=== PATIENT | female | born 1955 | race Caucasian/White ===

== ENCOUNTER → 2016-10-06 | Outpatient (CLI) | payer OTHER ==
[~2016-10-06] MED LIST: ACID REDUCER150 MG PO; ALBUTEROL17 GM INH; ALBUTEROL2.5 MG/3 M NEB; ALENDRONATE SOD70 M1 PO; ALPRAZOLAM PO; ASPIRIN81 M1 PO; ASPIRINEC PO; ATENOLOL PO; BACTRIM DS TABL1 TA1 PO; BACTRIM DS TABL1 TAB PO; BIAXIN PO; FAMOTIDINE PO; HCTZ PO; HYDROCHLOROTHIA25 MG PO; IBUPROFEN PO; KEFLEX PO; MYLANTA PO; NEXIUM PO; PATIENT'S PHARMACY; PRILOSEC PO; PYRIDIUM PO; TENORMIN50 MG PO; TYLENOL #3 PO; ULTRAM PO; VICODIN PO; VOLTAREN100 GM TOP; ZITHROMAX
--- NOTE | ~2016-10-06 | CR169 ---
[facility] A Service of [facility] RADIOLOGY TEXT RESULTS PATIENT: ISABEL JUAREZ LOCATION: [facility] : 57 UNIT #: [id number] AGE: [address]: Gina Nam MD SEX: F ORDER DR: [id number] [facility] [address] [place], [place] [address] [id number] O MR#: [id number] Acc #: [id number] NAME: ISABEL JUAREZ : 1955 SEX: F STUDY DATE/TIME: 10/06/2016 15:51 UNIT: [facility] ROOM: STUDY DESCRIPTION: CR Knee 2 Views Lt Attending Physician: Gina Nam M.D. Referring Physician: Gina Nam M.D. Ordering Physician: Gina Nam M.D. Primary Care Physician: Gina Nam M.D. MEDICAL IMAGING REPORT This report is preliminary unless electronic signature is present EXAM Left knee. HISTORY Bilateral knee pain with intermittent buckling for four months. FINDINGS Two views of the left knee are obtained. Bony elements are intact. Joint spaces and articular surfaces are preserved. No fractures are seen. There is no joint effusion. There is some ossification at the quadriceps insertion. CONCLUSION Negative. Dictated by... Ozzy Thorne M.D. THIS IS AN ELECTRONICALLY VERIFIED REPORT Ozzy Thorne M.D. at 10/10/2016 5:09 PM Liang TD: 10/07/2016 06:44 JOB #: [id number] MEDICAL IMAGING REPORT Page 1 of 1 COPY
--- NOTE | ~2016-10-06 | CR170 ---
[facility] A Service of [facility] RADIOLOGY TEXT RESULTS PATIENT: ISABEL JUAREZ LOCATION: [facility] : 57 UNIT #: [id number] AGE: [address]: Gina Nam MD SEX: F ORDER DR: [id number] [facility] [address] [place], [place] [address] [id number] O MR#: [id number] Acc #: [id number] NAME: ISABEL JUAREZ : 1955 SEX: F STUDY DATE/TIME: 10/06/2016 15:51 UNIT: [facility] ROOM: STUDY DESCRIPTION: CR Knee 2 Views Rt Attending Physician: Gina Nam M.D. Referring Physician: Gina Nam M.D. Ordering Physician: Gina Nam M.D. Primary Care Physician: Gina Nam M.D. MEDICAL IMAGING REPORT This report is preliminary unless electronic signature is present EXAM Right knee two views. HISTORY Knee pain for four months. Two views are submitted. FINDINGS There is mild marginal spur formation along the intercondylar notch. There is ossification of the quadriceps tendon insertion. No fractures are identified. IMPRESSION Mild marginal spur formation, otherwise negative. Dictated by... Ozzy Thorne M.D. THIS IS AN ELECTRONICALLY VERIFIED REPORT Ozzy Thorne M.D. at 10/10/2016 5:09 PM Liang TD: 10/07/2016 06:45 JOB #: [id number] MEDICAL IMAGING REPORT COPY
--- NOTE | ~2016-10-06 | CR184 ---
[facility] A Service of [facility] RADIOLOGY TEXT RESULTS PATIENT: ISABEL JUAREZ LOCATION: [facility] : 57 UNIT #: [id number] AGE: [address]: Gina Nam MD SEX: F ORDER DR: [id number] [facility] [address] [place], [place] [address] [id number] O MR#: [id number] Acc #: [id number] NAME: ISABEL JUAREZ : 1955 SEX: F STUDY DATE/TIME: 10/06/2016 15:53 UNIT: [facility] ROOM: STUDY DESCRIPTION: CR Lumbar Spine Min 4 Views Attending Physician: Gina Nam M.D. Referring Physician: Gina Nam M.D. Ordering Physician: Gina Nam M.D. Primary Care Physician: Gina Nam M.D. MEDICAL IMAGING REPORT This report is preliminary unless electronic signature is present EXAM Lumbosacral spine with obliques HISTORY Chronic neck and low back pain. FINDINGS AP, lateral, spot and oblique views were obtained. There is generalized osteopenia. Disc space and vertebral body height is maintained. Alignment is normal. There are atherosclerotic calcifications in the aorta. There is evidence of facet disease at L5-S1. CONCLUSION Osteopenia. Facet disease L5-S1. No acute findings. Dictated by... Ozzy Thorne M.D. THIS IS AN ELECTRONICALLY VERIFIED REPORT Ozzy Thorne M.D. at 10/10/2016 5:10 PM KINGSTON/nikki TD: 10/07/2016 06:50 JOB #: [id number] MEDICAL IMAGING REPORT Page 1 of 1 COPY
--- NOTE | ~2016-10-06 | CR61 ---
[facility] A Service [facility] RADIOLOGY TEXT RESULTS PATIENT: ISABEL JUAREZ LOCATION: [facility] : 57 UNIT #: [id number] AGE: [address]: Gina Nam MD SEX: F ORDER DR: [id number] [facility] [address] [place], [place] [address] [id number] O MR#: [id number] Acc #: [id number] NAME: ISABEL JUAREZ : 1955 SEX: F STUDY DATE/TIME: 10/06/2016 15:52 UNIT: [facility] ROOM: STUDY DESCRIPTION: CR Cervical Spine Min 5 Views Attending Physician: Gina Nam M.D. Referring Physician: Gina Nam M.D. Ordering Physician: Gina Nam M.D. Primary Care Physician: Gina Nam M.D. MEDICAL IMAGING REPORT This report is preliminary unless electronic signature is present EXAM Cervical spine total of 5 views HISTORY Bilateral knee pain with intermittent buckling for 4 months. Chronic neck and low back pain. FINDINGS AP, lateral, open-mouth and oblique views are submitted for a total of 6 views. There are no previous studies for comparison. Two additional odontoid views are submitted. FINDINGS Cervical alignment is normal. There is disc space narrowing at C4-5. There is evidence of facet disease at C2-3. No fractures are identified. There is foraminal narrowing at C2-3. There are atherosclerotic calcifications in the carotid bifurcations. CONCLUSION Degenerative disc disease at the C5-6 level. Facet disease at C2-3 with some mild neural foraminal narrowing. Dictated by... Ozzy Thorne M.D. THIS IS AN ELECTRONICALLY VERIFIED REPORT Ozzy Thorne M.D. at 10/10/2016 5:10 PM Liang TD: 10/07/2016 07:38 JOB #: [id number] MEDICAL IMAGING REPORT [facility] A Service [facility] RADIOLOGY TEXT RESULTS PATIENT: ISABEL JUAREZ LOCATION: [facility] #: [id number] : 57 UNIT #: [id number] AGE: [address]: Gina Nam MD SEX: F ORDER DR: Page 1 of 1 COPY
== END | disposition home or self-care (01) ==
LOC: CRAD 15:01
DX: M54.89 Other dorsalgia (principal); M25.561 Pain in right knee; M85.88 Other specified disorders of bone density and structure, other site; M50.322 Other cervical disc degeneration at C5-C6 level
CPT/HCPCS: 72050; 72110; 73560

== ENCOUNTER → 2016-10-12 17:40 | Emergency (ER) | payer OTHER ==
--- NOTE | ~2016-10-12 | EKG ---
PATIENT: ISABEL JUAREZ UNIT #: [id number] Ventricular Rate: 63 BPM Atrial Rate: 63 BPM P-R Interval: 158 ms QRS Duration: 84 ms Q-T Interval: 430 ms QTC Calculation(Bezet): 440 ms P [place]: 74 degrees Calculated R [place]: 90 degrees Calculated T [place]: 80 degrees Diagnosis Line: Normal sinus rhythm Diagnosis Line: Rightward axis Diagnosis Line: Otherwise normal ECG Diagnosis Line: When compared with ECG of 12-OCT-2016 15:32, Diagnosis Line: (unconfirmed) Diagnosis Line: No significant change was found Diagnosis Line: Confirmed by NATALIE SANTIAGO MD ([id number]) on 10/14/2016 Diagnosis Line: 9:31:03 AM INTERPRETING MD: PAMELA DEWEY
== END | disposition left against medical advice (07) ==
LOC: CED 17:40
DX: Z53.21 Procedure and treatment not carried out due to patient leaving prior to being seen by health care provider (principal)
CPT/HCPCS: 93005

== ENCOUNTER → 2016-10-24 | Outpatient (CLI) | payer OTHER ==
--- NOTE | ~2016-10-24 | CT138 ---
[facility] A Service of [facility] RADIOLOGY TEXT RESULTS PATIENT: ISABEL JUAREZ LOCATION: [facility] : 57 UNIT #: [id number] AGE: [address]: Gina Nam MD SEX: F ORDER DR: [id number] [id number] [facility] [place], [place] [address] [id number] O MR#: [id number] [facility] #: [id number] NAME: ISABEL JUAREZ : 1955 SEX: F STUDY DATE/TIME: 10/24/2016 14:54 UNIT: [facility] ROOM: STUDY DESCRIPTION: CT Lung screening initial Attending Physician: Gina Nam M.D. Referring Physician: Gina Nam M.D. Ordering Physician: Gina Nam M.D. Primary Care Physician: Gina Nam M.D. MEDICAL IMAGING REPORT This report is preliminary unless electronic signature is present EXAM CT of the chest without contrast lung cancer screening INDICATIONS 60-year-old female with 40 pack-year total smoking history. Current smoker. TECHNIQUE CT of the chest was performed without contrast low-dose lung cancer screening protocol. Coronal and sagittal reformatted images were obtained. CT dose index 2.[address] exam was performed with one or more of the following radiation dose reduction techniques: automatic exposure control, adjustment of mA and/or kV according to patient size, and iterative reconstruction. FINDINGS Emphysema. Linear scarring or atelectasis in the right middle lobe and lingula. No suspicious pulmonary nodule or airspace consolidation. No lymphadenopathy. Calcified hilar lymph nodes on the right. Calcified granuloma in the right lung. Bone windows are unremarkable. IMPRESSION No suspicious pulmonary nodule. ACR lung RADS category 1. Followup annual low-dose lung cancer screening chest CT in one year. Dictated by... Lan Parker M.D. THIS IS AN ELECTRONICALLY VERIFIED REPORT Lan Parker M.D. at 10/27/2016 9:00 AM ARS/cmm [facility] A Service of [facility] RADIOLOGY TEXT RESULTS PATIENT: ISABEL JUAREZ LOCATION: [facility] : 57 UNIT #: [id number] AGE: [address]: Gina Nam MD SEX: F ORDER DR: TD: 10/25/2016 08:33 JOB #: [id number] MEDICAL IMAGING REPORT Page 1 of 1 COPY
== END | disposition home or self-care (01) ==
LOC: CCAT 14:29
DX: F17.210 Nicotine dependence, cigarettes, uncomplicated (principal)
CPT/HCPCS: G0297

== ENCOUNTER 2017-02-01 08:06 | Emergency (ER) | payer OTHER ==
--- NOTE | ~2017-02-01 | EKG ---
PATIENT: ISABEL JUAREZ UNIT #: [id number] Ventricular Rate: 66 BPM Atrial Rate: 66 BPM P-R Interval: 144 ms QRS Duration: 84 ms Q-T Interval: 426 ms QTC Calculation(Bezet): 446 ms P [place]: 71 degrees Calculated R [place]: 80 degrees Calculated T [place]: 75 degrees Diagnosis Line: Normal sinus rhythm Diagnosis Line: Possible Left atrial enlargement Diagnosis Line: Borderline ECG Diagnosis Line: When compared with ECG of 12-OCT-2016 15:32, Diagnosis Line: No significant change was found Diagnosis Line: Confirmed by EDUARDA FERRARO MD ([id number]) on Diagnosis Line: 02/02/2017 10:37:07 AM INTERPRETING MD: RONAN DEWEY
--- NOTE | ~2017-02-01 | HP ---
Unit #: [id number] #: [id number] Patient: ISABEL JUAREZ [id number] [address] [place], [place] [address] [id number] E MR#: [id number] NAME: ISABEL JUAREZ. ROOM: Age: 61 Sex: F Admission Date: 02/01/2017 : 1955 Attending Physician: Fede Dimas D.O. Primary Care Physician: Gina Nam M.D. HISTORY AND PHYSICAL HISTORY OF PRESENT ILLNESS This is a 61-year-old white female, who presented to the emergency room with the complaint of substernal chest heaviness. She describes it as "someone was sitting on my chest." She had associated shortness of breath, weakness, but no diaphoresis. Chest pain occurred yesterday after an argument with her son. She also reports intermittent left arm pain. She has been unable to lay down because of dyspnea. She has been out of her inhalers and mini-nebs for some time. She reports cough that is nonproductive but no fever or chills. She denies leg edema. She has occasional palpitations. She has risk factors for ischemic heart disease, includes hypertension, nicotine abuse and a family history of heart disease. She had a cardiac catheterization in 2010 which was normal. PAST MEDICAL HISTORY 1. Cardiac catheterization, 10/08/2010, shows ejection fraction of 60% with angiographically normal coronaries. 2. 2D echocardiogram, 04/02/2008 shows ejection fraction of 60 to 65% with trace mitral regurgitation and trace tricuspid regurgitation. 3. Hypertension. 4. Transient ischemic attack. 5. Asthma. 6. Chronic obstructive pulmonary disease. 7. Hepatitis C. 8. Fibromyalgia. 9. Active smoker. 10. Anxiety. PAST SURGICAL HISTORY 1. section. 2. Spinal surgery. 3. Hysterectomy. 4. Bladder repair. 5. Repair of a coccyx fissure. 6. Laparoscopic surgery. SOCIAL HISTORY The patient lives with her son. She smokes a half a pack of cigarettes a day but previously smoked two packs of cigarettes a day since she was a teenager. She denies illicit drug and alcohol use. FAMILY HISTORY Father from heart attack in his 60s. ALLERGIES Unit #: [id number] #: [id number] Patient: ISABEL JUAREZ Salome. HOME MEDICATIONS 1. Voltaren topically three times a day 2. Albuterol one vial per mini-neb q.6h p.r.n. 3. Atenolol 100 mg daily 4. Prilosec 40 mg daily 5. Albuterol two puffs q.4-6h p.r.n. REVIEW OF SYSTEMS CONSTITUTIONAL: No complaint of fever or chills, reports weakness and fatigue. No weight gain or weight loss. Generalized pain throughout her body as she relates to fibromyalgia. HEENT: Frequent headache. No hearing or vision changes or difficulty swallowing. Occasional dizziness. CARDIOVASCULAR: Has chest pain and palpitations, as described, in the history of present illness. Denies paroxysmal nocturnal dyspnea or orthopnea. No syncope or presyncope. RESPIRATORY: Has dyspnea at rest and on exertion, has a nonproductive cough. No hemoptysis. GASTROINTESTINAL: No abdominal pain. Has persistent nausea. No constipation or melena. EXTREMITIES: No leg edema. SKIN: Warm and dry. PHYSICAL EXAMINATION VITAL SIGNS: Blood pressure 140/65, heart rate 64, temperature 98.7, BMI 28. GENERAL: This is a 61-year-old well-developed, anxious white female who is in no acute respiratory distress. She is awake, alert, and oriented. There is no focal weakness. NECK: Trachea is midline. No thyromegaly or lymphadenopathy. No jugular venous distention with normal carotid upstrokes. HEART: S1 and S2. No S3 or S4. No murmurs, rubs, or clicks. Regular rate and rhythm. LUNGS: Diminished breath sounds with faint expiratory wheezes. No rhonchi or rales. ABDOMEN: Soft, nontender, with bowel sounds present. No organomegaly. EXTREMITIES: Pedal pulses are palpable without leg edema. SKIN: Warm and dry. DIAGNOSTIC STUDIES LABORATORY STUDIES: Hemoglobin 14.8, hematocrit 44.1, platelet count 135, white count 7.3, sodium 136, potassium 4.0, BUN 14, creatinine 0.6, glucose 119, CK total is 46, troponin less than 0.05 and less than 0.03. DIAGNOSTIC IMAGING: Chest x-ray showed no active disease. CARDIOVASCULAR STUDIES: Electrocardiogram shows normal sinus rhythm with no other acute ischemic changes. IMPRESSION 1. Chest pain of questionable etiology. 2. Normal cardiac catheterization in 2010. 3. Chronic obstructive pulmonary disease, questionable exacerbation. 4. Hypertension. 5. Nicotine abuse. 6. Anxiety. Unit #: [id number] #: [id number] Patient: ISABEL JUAREZ 7. Fibromyalgia. PLAN 1. We will continue to trend cardiac markers to rule out myocardial infarction. She had a normal cardiac catheterization in 2010. 2. Continue aspirin and beta gustavo. Will add Lovenox. 3. Proceed with exercise Cardiolite stress test in the a.m. to rule out ischemic heart disease. 4. Will ask pulmonary to see the patient for possible chronic obstructive pulmonary disease exacerbation. 5. Will ask Dr. Dunne to see the patient because of significant anxiety. 6. TSH and lipid profile will be obtained. ADDENDUM The patient left AGAINST MEDICAL ADVICE. Dictated by Sola Vargas/javier TD: 02/05/2017 10:25 JOB #: [id number] HISTORY AND PHYSICAL Page 1 of 1 X Colin Moon APRN X HISTORY AND PHYSICAL
--- NOTE | ~2017-02-01 | CR63 ---
[facility] A Service [facility] RADIOLOGY TEXT RESULTS PATIENT: ISABEL JUAREZ LOCATION: [facility] : 57 UNIT #: [id number] AGE: [address]: Fede Dimas DO SEX: F ORDER DR: [id number] [facility] [address] [place], [place] [address] [id number] E MR#: [id number] Acc #: [id number] NAME: ISABEL JUAREZ : 1955 SEX: F STUDY DATE/TIME: 02/01/2017 9:16 UNIT: [facility] ROOM: STUDY DESCRIPTION: CR Chest 2 View Attending Physician: Fede Dimas D.O. Ordering Physician: Fede Dimas D.O. Primary Care Physician: Gina Nam M.D. MEDICAL IMAGING REPORT This report is preliminary unless electronic signature is present EXAM Chest x-ray HISTORY Cough, shortness breath for the past week. TECHNIQUE Two views of the chest were obtained and compared with 07/25/2015 FINDINGS PA and lateral examination of the chest upright shows a good expansion of the parenchyma with a normal distribution of the pulmonary vascularity. There is no indication of congestion, effusion, infiltrate, tumor, or nodular density. The pleural reflections and diaphragmatic contours are normal. The cardiac silhouette and mediastinal anatomy is within normal limits. IMPRESSION Normal chest. Dictated by... Brijesh Nicole M.D. THIS IS AN ELECTRONICALLY VERIFIED REPORT Brijesh Nicole M.D. at 02/01/2017 4:41 PM RLF/cmm TD: 02/01/2017 10:23 JOB #: [id number] [facility] A Service of [facility] RADIOLOGY TEXT RESULTS PATIENT: ISABEL JUAREZ LOCATION: [facility] : 57 UNIT #: [id number] AGE: [address]: Fede Dimas DO SEX: F ORDER DR: MEDICAL IMAGING REPORT Page 1 of 1 COPY
[~2017-02-01 08:06] MED LIST changes: -ALBUTEROL17 GM INH; -ALBUTEROL2.5 MG/3 M NEB; -ALENDRONATE SOD70 M1 PO; -ATENOLOL PO; -PATIENT'S PHARMACY; -PRILOSEC PO; -TENORMIN50 MG PO; -VOLTAREN100 GM TOP
[2017-02-01 11:00] LABS: BASOPHIL% 0.7 % (0-2.5); EOSINOPHIL# 0.1 X10e3 (0-0.7); EOSINOPHIL% 0.8 % (0.0-7.0); HEMATOCRIT 44.1 % (35.0-45.0); HEMOGLOBIN 14.8 gm/dL (12.0-16.0); LYMPHOCYTE# 2.1 X10e3 (1.0-3.5); LYMPHOCYTE% 28.7 % (17.0-45.0); MEAN CELL VOLUME 86.7 FL (83-96); MEAN CORPUSCULAR HGB CONC 33.5 g/dL (30-36); MEAN PLATELET VOLUME 8.1 FL (6.5-11.5); MONOCYTE# 0.5 X10e3 (0-1.0); MONOCYTE% 7.3 % (3.0-12.0); NEUTROPHIL# 4.5 X10e3 (1.5-7.1); NEUTROPHIL% 62.5 % (40-75); PLATELET COUNT 135 X10e3 (140-420); RED BLOOD COUNT 5.08 X10e (3.90-5.30); RED CELL DISTRIBUTION WIDTH 12.8 % (11.0-15.5); WHITE BLOOD COUNT 7.3 X10e3 (4.0-10.5)
[2017-02-01 11:22] LABS: BUN/CREATININE RATIO 23.33; CALCIUM SERUM 8.7 mg/dL (8.4-10.2); CREATININE SERUM 0.6 mg/dL (0.6-1.4); GLOM FILT RATE Estimated 99.1 mL/min (>60)
[2017-02-01 11:35] LABS: DIFF IND YES
[2017-02-01 11:49] LABS: PLATELET ESTIMATE DECREASED (NORMAL); RBC NORMAL YES
[2017-02-01 12:26] LABS: CK TOTAL 46 IU/L (26-140)
[2017-02-01 12:42] LABS: POC - CKMB <1.0 ng/mL (0.0-7.9); POC - TROPONIN <0.05 ng/mL (<=0.05)
[2017-02-01] MEDS ORDERED: VOLTAREN100 GM TOP (14:53)
[2017-02-01] MEDS ORDERED: PATIENT'S PHARMACY (14:53)
[2017-02-01] MEDS ORDERED: ATENOLOL PO ×2 (14:54→14:59)
[2017-02-01] MEDS ORDERED: TENORMIN50 MG PO (14:54)
[2017-02-01] MEDS ORDERED: ALENDRONATE SOD70 M1 PO (14:54)
[2017-02-01] MEDS ORDERED: ALBUTEROL2.5 MG/3 M NEB (14:54)
[2017-02-01] MEDS ORDERED: ALBUTEROL17 GM INH (15:00)
[2017-02-01] MEDS ORDERED: PRILOSEC PO (15:00)
[2017-02-01 16:26] LABS: CK TOTAL 49 IU/L (26-140)
== END 2017-02-01 17:09 | disposition home or self-care (01) ==
LOC: CED 08:06
PROVIDERS: Emergency Medicine; Internal Medicine Cardiovascular Disease
DX: J44.1 Chronic obstructive pulmonary disease with (acute) exacerbation (principal); J45.909 Unspecified asthma, uncomplicated; I10 Essential (primary) hypertension; F17.200 Nicotine dependence, unspecified, uncomplicated; Z90.710 Acquired absence of both cervix and uterus; Z79.899 Other long term (current) drug therapy; Z88.5 Allergy status to narcotic agent
CPT/HCPCS: 36415; 71020; 80048; 82550; 82553; 84484; 85025; 85379; 93005; 94640; 99285